=== PATIENT | male | born 1940 | race Caucasian/White ===

== ENCOUNTER → 2016-11-07 | Outpatient (CLI) | payer MEDICARE, BC ==
[~2016-11-07] MED LIST: ASPIRIN E.C. 8181 MG PO; BYSTOLIC10 MG PO; CATAPRES-TTS 10.1 M1 TD; CEPHALEXIN500 M1 PO; COVERA-HS180 MG PO; COZAAR 50MG50 MG/TAB PO; CRESTOR10 MG PO; FLOMAX 0.40.4 MG/CAP PO; FOSINOPRIL SODI10 MG PO; LEVAQUIN 5500 MG/TAB PO; MAXZIDE 50 MG-71 TAB PO; MONOPRIL20 MG PO; NORCO 325 MG-7.1 TAB PO; SENOKOTXTRA17.2 MG PO; TIROSINT50 MCG PO; TRIAMTERENE W/H1 TA1 PO; XARELTO15 MG PO; XARELTO20 MG PO; ZANTAC 150MG T150 MG PO
[2016-11-07 09:55] LABS: HEMATOCRIT 45.8 % (42.0-52.0); HEMOGLOBIN 15.4 g/dl (13.5-18.0); MEAN CELL VOLUME 93 fl (80.0-100.0); MEAN CORPUSCULAR HEMOGLOBIN 31 pg (27.0-31.0); MEAN CORPUSCULAR HGB CONC 34 g/dl (33.0-37.0); MEAN PLATELET VOLUME 10.7 fl (7.4-10.4); PLATELET COUNT 181 K/mm3 (130-400); RED BLOOD COUNT 4.92 M/mm3 (4.20-5.60)
[2016-11-07 10:15] LABS: ADJUSTED CALCIUM 9.4 mg/dL (8.4-10.2); ALBUMIN 3.8 gm/dL (3.5-5.0); CALCIUM 9.2 mg/dL (8.4-10.2); CREATININE, serum 1.74 mg/dL (0.66-1.25); POTASSIUM 3.5 mmol/L (3.4-5.0); TOTAL PROTEIN 6.9 gm/dL (6.4-8.2)
== END ==
LOC: COL.LAB 08:47
PROVIDERS: Internal Medicine
DX: Z01.89 Encounter for other specified special examinations (principal)

== ENCOUNTER 2017-02-05 17:07 | Inpatient (IN) | payer MEDICARE, BC ==
[~2017-02-05] VITALS: Ht 182.9 cm; Wt 89.2 kg
[2017-02-05] VITALS (179 sets, daily range): BP systolic 160; BP diastolic 95; PULSE 65; TEMP 98.1; O2SAT 86–98
[~2017-02-05 17:07] MED LIST changes: -ASPIRIN E.C. 8181 MG PO; -BYSTOLIC10 MG PO; -CATAPRES-TTS 10.1 M1 TD; -COZAAR 50MG50 MG/TAB PO; -FLOMAX 0.40.4 MG/CAP PO; -XARELTO20 MG PO; -ZANTAC 150MG T150 MG PO
[2017-02-05 17:31] LABS: BASO # 0.1 (0.0-0.2); BASO % 0.5 % (0.0-2.0); EOS # 0.1 (0.0-0.7); EOS % 0.7 % (0-4.0); GRAN # 8.2 (1.4-6.5); GRAN % 66.9 % (42.2-75.2); HEMATOCRIT 46.2 % (42.0-52.0); HEMOGLOBIN 15.8 g/dl (13.5-18.0); LYMPH # 2.8 (1.2-3.4); LYMPH % 22.7 % (20.0-51.0); MEAN CELL VOLUME 92 fl (80.0-100.0); MEAN CORPUSCULAR HEMOGLOBIN 31 pg (27.0-31.0); MEAN CORPUSCULAR HGB CONC 34 g/dl (33.0-37.0); MONO # 1.1 (0.1-0.6); PLATELET COUNT 170 K/mm3 (130-400); RED BLOOD COUNT 5.03 M/mm3 (4.20-5.60); REDCELL DISTRIBUTION WIDTH-CV 12.9 % (11.5-14.5); WHITE BLOOD COUNT 12.3 K/mm3 (4.8-10.8)
[2017-02-05 17:36] LABS: INR 1.1 (0.8-3.0); PROTHROMBIN TIME 12.1 SECONDS (9.7-12.8)
[2017-02-05 17:39] LABS: PARTIAL THROMBOPLASTIN TIME 31.6 SECONDS (26.0-37.0)
[2017-02-05] MEDS ORDERED: BYSTOLIC10 MG PO (17:40)
[2017-02-05 17:51] LABS: ADJUSTED CALCIUM 9.3 mg/dL (8.4-10.2); BILIRUBIN,TOTAL 1.2 mg/dL (0.0-1.0); CALCIUM 9.3 mg/dL (8.4-10.2); CREATININE, serum 1.77 mg/dL (0.66-1.25); POTASSIUM 3.4 mmol/L (3.4-5.0); TOTAL PROTEIN 7.5 gm/dL (6.4-8.2)
[2017-02-05] MEDS ORDERED: CATAPRES-TTS 10.1 M1 TD (18:22)
[2017-02-05] MEDS ORDERED: FLOMAX 0.40.4 MG/CAP PO (18:27)
[2017-02-05] MEDS ORDERED: ZANTAC 150MG T150 MG PO (18:27)
[2017-02-05 19:06] LABS: TROPONIN-I 0.054 ng/mL (0.000-0.034)
[2017-02-06] VITALS (462 sets, daily range): BP systolic 121–173; BP diastolic 73–92; PULSE 52–62; TEMP 97.1–98.5; O2SAT 75–98
[2017-02-06 03:38] LABS: PH 6 (5-8); SQUAMOUS EPITHELIAL None Seen /hpf; URINE APPEARANCE Clear; URINE BACTERIA None Seen /hpf; URINE BILIRUBIN Negative (NEGATIVE); URINE BLOOD Negative (NEGATIVE); URINE COLOR Yellow; URINE GLUCOSE Negative (NEGATIVE); URINE KETONE Negative (NEGATIVE); URINE RBC 0-2 /hpf; URINE UROBILINOGEN Negative (NEGATIVE); URINE WBC 0-2 /hpf
[2017-02-06 05:56] LABS: BASO # 0.1 (0.0-0.2); BASO % 0.5 % (0.0-2.0); EOS # 0.1 (0.0-0.7); EOS % 1.2 % (0-4.0); GRAN # 7.8 (1.4-6.5); HEMATOCRIT 40.1 % (42.0-52.0); LYMPH # 2.3 (1.2-3.4); LYMPH % 20.3 % (20.0-51.0); MEAN CELL VOLUME 93 fl (80.0-100.0); MEAN CORPUSCULAR HEMOGLOBIN 31 pg (27.0-31.0); MEAN CORPUSCULAR HGB CONC 33 g/dl (33.0-37.0); MONO # 1.1 (0.1-0.6); MONO % 9.7 % (1.7-9.3); PLATELET COUNT 139 K/mm3 (130-400); RED BLOOD COUNT 4.31 M/mm3 (4.20-5.60); WHITE BLOOD COUNT 11.4 K/mm3 (4.8-10.8)
[2017-02-06 06:06] LABS: CREATININE, serum 1.59 mg/dL (0.66-1.25); HEMOGLOBIN 13.2 g/dl (13.5-18.0); POTASSIUM 3.6 mmol/L (3.4-5.0)
[2017-02-07] VITALS: BP 150/75; PULSE 63; TEMP 98
[2017-02-07 02:40] VITALS: BP 145/72; PULSE 57; TEMP 98.4
[2017-02-07 07:58] VITALS: BP 120/74; PULSE 57; TEMP 97.7
[2017-02-07 11:27] VITALS: BP 125/68; PULSE 66; TEMP 97.8
[2017-02-07 16:21] VITALS: BP 154/78; PULSE 64; TEMP 98
[2017-02-07 23:39] VITALS: BP 162/80; PULSE 56; TEMP 99
[2017-02-08 02:43] VITALS: BP 142/75; PULSE 54; TEMP 98.9
[2017-02-08 07:19] LABS: BASO % 0.4 % (0.0-2.0); EOS # 0.1 (0.0-0.7); EOS % 1.3 % (0-4.0); GRAN # 7.1 (1.4-6.5); GRAN % 69.9 % (42.2-75.2); HEMATOCRIT 39.5 % (42.0-52.0); HEMOGLOBIN 13.2 g/dl (13.5-18.0); LYMPH # 1.9 (1.2-3.4); LYMPH % 18.6 % (20.0-51.0); MEAN CELL VOLUME 92 fl (80.0-100.0); MEAN CORPUSCULAR HEMOGLOBIN 31 pg (27.0-31.0); MEAN CORPUSCULAR HGB CONC 33 g/dl (33.0-37.0); MEAN PLATELET VOLUME 11.2 fl (7.4-10.4); MONO % 9.4 % (1.7-9.3); PLATELET COUNT 187 K/mm3 (130-400); REDCELL DISTRIBUTION WIDTH-CV 12.6 % (11.5-14.5); WHITE BLOOD COUNT 10.2 K/mm3 (4.8-10.8)
[2017-02-08 07:33] LABS: CALCIUM 8.2 mg/dL (8.4-10.2); CREATININE, serum 1.56 mg/dL (0.66-1.25); POTASSIUM 3.5 mmol/L (3.4-5.0)
[2017-02-08 07:55] VITALS: BP 141/77; PULSE 57; TEMP 98.4
[2017-02-08 11:58] VITALS: BP 142/79; PULSE 67; TEMP 98.7
[2017-02-08 16:02] VITALS: BP 148/74; PULSE 48; TEMP 97.5
[2017-02-08 19:54] VITALS: BP 165/81; PULSE 50; TEMP 98.3
[2017-02-08 23:16] VITALS: BP 139/71; PULSE 50; TEMP 98.2
[2017-02-09 03:35] VITALS: BP 140/69; PULSE 50; TEMP 98.7
[2017-02-09 07:39] VITALS: BP 131/77; PULSE 49; TEMP 97.7
[2017-02-09 11:09] VITALS: BP 150/56; PULSE 78; TEMP 98.6
[2017-02-09 13:46] VITALS: BP 136/72; PULSE 46; TEMP 98.3
[2017-02-09 15:55] VITALS: BP 138/69; PULSE 60; TEMP 98.5
[2017-02-09 19:45] VITALS: BP 143/76; PULSE 49; TEMP 98.4
[2017-02-10] VITALS (7 sets, daily range): BP systolic 129–167; BP diastolic 47–82; PULSE 47–55; TEMP 97.6–98.4
[2017-02-10 07:21] LABS: CALCIUM 8.3 mg/dL (8.4-10.2); CREATININE, serum 1.46 mg/dL (0.66-1.25); POTASSIUM 3.5 mmol/L (3.4-5.0)
[2017-02-11] VITALS (9 sets, daily range): BP systolic 118–178; BP diastolic 68–85; PULSE 49–76; TEMP 97.3–98.6
[2017-02-11 09:08] LABS: HEPARIN INDUCED ANTIBODY Negative (Negative); HEPARIN INDUCED OD 0.196 (())
[2017-02-11] MEDS ORDERED: ASPIRIN E.C. 8181 MG PO (10:02)
[2017-02-11] MEDS ORDERED: XARELTO20 MG PO (10:02)
[2017-02-11] MEDS ORDERED: XARELTO15 MG PO (10:02)
[2017-02-11] MEDS ORDERED: COZAAR 50MG50 MG/TAB PO (10:02)
[2017-02-11 10:26] LABS: FACTOR V LEIDEN MUTATION B Negative (Negative)
[2017-02-11 10:40] LABS: CALCIUM 9.4 mg/dL (8.4-10.2); CREATININE, serum 1.47 mg/dL (0.66-1.25); POTASSIUM 3.9 mmol/L (3.4-5.0)
[2017-02-11 12:00] LABS: PROTEIN C ACTIVITY 90 % (70-150)
[2017-02-11 12:06] LABS: PROTEIN S ACTIVITY 137 % (65-149)
[2017-02-11 12:35] LABS: FACTOR II ACTIVITY 112 % (72-140)
[2017-02-12 15:17] LABS: VON WILLEBRAND FACTOR ANTIGEN 312 % (55 - 200)
[2017-02-13 10:19] LABS: LUPUS ANTICOAGULANT INR 1.2 (()); LUPUS ANTICOAGULANT PT 13.4 sec (()); LUPUS ANTICOAGULANT PTT 41 sec (26 - 36)
[2017-02-13 15:01] LABS: .ANTICARDIOLIPIN IGG <9.4 GPL (()); .ANTICARDIOLIPIN IGM <9.4 MPL (())
== END 2017-02-11 17:30 | disposition home or self-care (01) | DRG 175 ==
LOC: COL.ER 17:07 → ICU 18:02 → MEDICAL 02-06 15:24
PROVIDERS: Emergency Medicine; Internal Medicine; Nurse Practitioner Family; Physician Assistant
DX: I26.99 Other pulmonary embolism without acute cor pulmonale (principal); I21.4 Non-ST elevation (NSTEMI) myocardial infarction; I82.411 Acute embolism and thrombosis of right femoral vein; I10 Essential (primary) hypertension; Z85.528 Personal history of other malignant neoplasm of kidney; Z86.718 Personal history of other venous thrombosis and embolism; I27.2 Other secondary pulmonary hypertension
CPT/HCPCS: 99232-AI; 99239; A9502; J1650; J2785; J7030; Q9967

== ENCOUNTER → 2017-02-05 | Outpatient (CLI) | payer MEDICARE, BC | LOC: COL.LAB 11:22 | DX: R06.09 Other forms of dyspnea (principal) ==

== ENCOUNTER → 2017-02-05 | Outpatient (CLI) | payer MEDICARE, BC | LOC: COL.RAD 16:09 → COL.LAB 16:09 | DX: I26.99 Other pulmonary embolism without acute cor pulmonale (principal); R79.1 Abnormal coagulation profile; R91.1 Solitary pulmonary nodule; R06.09 Other forms of dyspnea; Z86.718 Personal history of other venous thrombosis and embolism | CPT/HCPCS: Q9967 ==

== ENCOUNTER → 2017-05-09 | Outpatient (CLI) | payer MEDICARE, BC ==
[~2017-05-09] MED LIST changes: +ASPIRIN E.C. 8181 MG PO; +BYSTOLIC10 MG PO; +CATAPRES-TTS 10.1 M1 TD; +COZAAR 50MG50 MG/TAB PO; +FLOMAX 0.40.4 MG/CAP PO; +XARELTO20 MG PO; +ZANTAC 150MG T150 MG PO
[2017-05-09 10:28] LABS: BASO # 0.1 (0.0-0.2); BASO % 0.7 % (0.0-2.0); EOS # 0.4 (0.0-0.7); EOS % 4.5 % (0-4.0); GRAN % 63.1 % (42.2-75.2); HEMATOCRIT 44.7 % (42.0-52.0); HEMOGLOBIN 14.8 g/dl (13.5-18.0); LYMPH # 2.2 (1.2-3.4); LYMPH % 23.2 % (20.0-51.0); MEAN CELL VOLUME 92 fl (80.0-100.0); MEAN CORPUSCULAR HEMOGLOBIN 31 pg (27.0-31.0); MEAN CORPUSCULAR HGB CONC 33 g/dl (33.0-37.0); MEAN PLATELET VOLUME 11.1 fl (7.4-10.4); MONO # 0.8 (0.1-0.6); MONO % 8.2 % (1.7-9.3); PLATELET COUNT 234 K/mm3 (130-400); RED BLOOD COUNT 4.84 M/mm3 (4.20-5.60); REDCELL DISTRIBUTION WIDTH-CV 13.8 % (11.5-14.5); WHITE BLOOD COUNT 9.5 K/mm3 (4.8-10.8)
[2017-05-09 10:43] LABS: ADJUSTED CALCIUM 9.4 mg/dL (8.4-10.2); ALBUMIN 3.9 gm/dL (3.5-5.0); BILIRUBIN,TOTAL 1.2 mg/dL (0.0-1.0); CALCIUM 9.3 mg/dL (8.4-10.2); CREATININE, serum 1.57 mg/dL (0.66-1.25); POTASSIUM 3.9 mmol/L (3.4-5.0)
== END ==
LOC: COL.LAB 08:48
DX: C64.2 Malignant neoplasm of left kidney, except renal pelvis (principal)

== ENCOUNTER → 2017-05-12 | Outpatient (CLI) | payer MEDICARE, BC | LOC: COL.RAD 09:42 | DX: C64.2 Malignant neoplasm of left kidney, except renal pelvis (principal) | CPT/HCPCS: Q9967 ==

== ENCOUNTER → 2017-11-07 | Outpatient (CLI) | payer MEDICARE, BC ==
[2017-11-07 11:31] LABS: BASO # 0.1 (0.0-0.2); BASO % 0.9 % (0.0-2.0); EOS # 0.3 (0.0-0.7); EOS % 2.8 % (0-4.0); GRAN # 6.1 (1.4-6.5); GRAN % 67.1 % (42.2-75.2); HEMATOCRIT 48.8 % (42.0-52.0); HEMOGLOBIN 16.2 g/dl (13.5-18.0); LYMPH # 1.7 (1.2-3.4); LYMPH % 18.7 % (20.0-51.0); MEAN CELL VOLUME 92 fl (80.0-100.0); MEAN CORPUSCULAR HEMOGLOBIN 31 pg (27.0-31.0); MEAN CORPUSCULAR HGB CONC 33 g/dl (33.0-37.0); MEAN PLATELET VOLUME 11.1 fl (7.4-10.4); MONO # 0.9 (0.1-0.6); MONO % 10.4 % (1.7-9.3); PLATELET COUNT 201 K/mm3 (130-400); RED BLOOD COUNT 5.28 M/mm3 (4.20-5.60); REDCELL DISTRIBUTION WIDTH-CV 13.5 % (11.5-14.5)
[2017-11-07 11:36] LABS: ALBUMIN 3.9 gm/dL (3.5-5.0); BILIRUBIN,TOTAL 0.9 mg/dL (0.0-1.0); CALCIUM 9.2 mg/dL (8.4-10.2); CREATININE, serum 1.5 mg/dL (0.66-1.25); POTASSIUM 3.9 mmol/L (3.4-5.0); TOTAL PROTEIN 7.2 gm/dL (6.4-8.2)
== END ==
LOC: COL.LAB 08:57
PROVIDERS: Internal Medicine
DX: C64.9 Malignant neoplasm of unspecified kidney, except renal pelvis (principal)

== ENCOUNTER → 2018-02-09 | Outpatient (CLI) | payer MEDICARE, BC ==
[2018-02-09 09:30] LABS: HEMATOCRIT 46.2 % (42.0-52.0); HEMOGLOBIN 15.8 g/dl (13.5-18.0); MEAN CELL VOLUME 93 fl (80.0-100.0); MEAN CORPUSCULAR HEMOGLOBIN 32 pg (27.0-31.0); MEAN CORPUSCULAR HGB CONC 34 g/dl (33.0-37.0); MEAN PLATELET VOLUME 10.5 fl (7.4-10.4); PLATELET COUNT 220 K/mm3 (130-400); RED BLOOD COUNT 4.97 M/mm3 (4.20-5.60)
[2018-02-09 09:43] LABS: ALBUMIN 3.6 gm/dL (3.5-5.0); BILIRUBIN,TOTAL 0.9 mg/dL (0.0-1.0); CALCIUM 9.2 mg/dL (8.4-10.2); CREATININE, serum 1.55 mg/dL (0.66-1.25); POTASSIUM 4.1 mmol/L (3.4-5.0); TOTAL PROTEIN 7.2 gm/dL (6.4-8.2)
[2018-02-09 11:24] LABS: BASOPHIL 2 % (0-2); EOSINOPHIL 3 % (0-4); LYMPHOCYTE 27 % (20.0-51.0); NEUTROPHILS 67 % (42.0-75.2); PLATELET ESTIMATE NORMAL (NORMAL)
== END ==
LOC: COL.LAB 08:53
PROVIDERS: Internal Medicine
DX: C64.9 Malignant neoplasm of unspecified kidney, except renal pelvis (principal)

== ENCOUNTER → 2018-02-11 | Outpatient (CLI) | payer MEDICARE, BC | LOC: COL.RAD 09:17 | DX: R91.8 Other nonspecific abnormal finding of lung field (principal); Z85.528 Personal history of other malignant neoplasm of kidney ==

== ENCOUNTER → 2018-08-19 | Outpatient (CLI) | payer MEDICARE, BC ==
[2018-08-19 09:49] LABS: HEMATOCRIT 48.6 % (42.0-52.0); HEMOGLOBIN 15.9 g/dl (13.5-18.0); MEAN CELL VOLUME 93 fl (80.0-100.0); MEAN CORPUSCULAR HEMOGLOBIN 30 pg (27.0-31.0); MEAN CORPUSCULAR HGB CONC 33 g/dl (33.0-37.0); MEAN PLATELET VOLUME 9.9 fl (7.4-10.4); PLATELET COUNT 268 K/mm3 (130-400); RED BLOOD COUNT 5.25 M/mm3 (4.20-5.60); REDCELL DISTRIBUTION WIDTH-CV 13.7 % (11.5-14.5)
[2018-08-19 09:57] LABS: ALBUMIN 3.9 gm/dL (3.5-5.0); BILIRUBIN,TOTAL 0.6 mg/dL (0.0-1.0); CALCIUM 9.3 mg/dL (8.4-10.2); CREATININE, serum 1.43 mg/dL (0.66-1.25); POTASSIUM 4.1 mmol/L (3.4-5.0); TOTAL PROTEIN 7.1 gm/dL (6.4-8.2)
[2018-08-19 13:43] LABS: BAND 5 % (0-10); LYMPHOCYTE 28 % (20.0-51.0); NEUTROPHILS 64 % (42.0-75.2)
[2018-08-19 13:49] LABS: PLATELET ESTIMATE NORMAL (NORMAL)
== END ==
LOC: COL.LAB 08:44
PROVIDERS: Internal Medicine
DX: C64.2 Malignant neoplasm of left kidney, except renal pelvis (principal); R91.1 Solitary pulmonary nodule

== ENCOUNTER → 2019-02-15 | Outpatient (CLI) | payer MEDICARE, BC ==
[2019-02-15 09:02] LABS: HEMATOCRIT 47.6 % (42.0-52.0); HEMOGLOBIN 15.8 g/dl (13.5-18.0); MEAN CELL VOLUME 94 fl (80.0-100.0); MEAN CORPUSCULAR HEMOGLOBIN 31 pg (27.0-31.0); MEAN CORPUSCULAR HGB CONC 33 g/dl (33.0-37.0); MEAN PLATELET VOLUME 10.5 fl (7.4-10.4); PLATELET COUNT 213 K/mm3 (130-400); RED BLOOD COUNT 5.09 M/mm3 (4.20-5.60); REDCELL DISTRIBUTION WIDTH-CV 13.2 % (11.5-14.5)
[2019-02-15 09:03] LABS: ALBUMIN 3.7 gm/dL (3.5-5.0); BILIRUBIN,TOTAL 0.9 mg/dL (0.0-1.0); CREATININE, serum 1.51 (0.66-1.25); POTASSIUM 3.8 mmol/L (3.4-5.0); TOTAL PROTEIN 6.9 gm/dL (6.4-8.2)
[2019-02-15 09:53] LABS: EOSINOPHIL 9 % (0-4); LYMPHOCYTE 32 % (20.0-51.0); NEUTROPHILS 52 % (42.0-75.2); PLATELET ESTIMATE NORMAL (NORMAL)
== END ==
LOC: COL.LAB 08:25
PROVIDERS: Internal Medicine
DX: C64.2 Malignant neoplasm of left kidney, except renal pelvis (principal)

== ENCOUNTER → 2020-02-16 | Outpatient (CLI) | payer MEDICARE, BC ==
[2020-02-16 16:21] LABS: HEMATOCRIT 39.1 % (42.0-52.0); HEMOGLOBIN 12.8 g/dl (13.5-18.0); MEAN CELL VOLUME 96 fl (80.0-100.0); MEAN CORPUSCULAR HEMOGLOBIN 31 pg (27.0-31.0); MEAN CORPUSCULAR HGB CONC 33 g/dl (33.0-37.0); MEAN PLATELET VOLUME 10.6 fl (7.4-10.4); PLATELET COUNT 207 K/mm3 (130-400); RED BLOOD COUNT 4.07 M/mm3 (4.20-5.60); REDCELL DISTRIBUTION WIDTH-CV 13.4 % (11.5-14.5)
[2020-02-16 16:30] LABS: ALBUMIN 4.1 gm/dL (3.5-5.0); BILIRUBIN,TOTAL 0.9 mg/dL (0.0-1.0); CALCIUM 9.4 mg/dL (8.4-10.2); CREATININE, serum 2.3 (0.66-1.25); POTASSIUM 3.7 mmol/L (3.4-5.0); TOTAL PROTEIN 7.4 gm/dL (6.4-8.2)
[2020-02-16 18:38] LABS: EOSINOPHIL 2 % (0-4); LYMPHOCYTE 29 % (20.0-51.0); NEUTROPHILS 58 % (42.0-75.2); PLATELET ESTIMATE NORMAL (NORMAL)
== END ==
LOC: COL.LAB 15:56
PROVIDERS: Internal Medicine
DX: C64.2 Malignant neoplasm of left kidney, except renal pelvis (principal)

== ENCOUNTER → 2020-08-16 | Outpatient (CLI) | payer MEDICARE, BC ==
[2020-08-16 16:27] LABS: HEMATOCRIT 44.5 % (42.0-52.0); HEMOGLOBIN 14.8 g/dl (13.5-18.0); MEAN CELL VOLUME 93 fl (80.0-100.0); MEAN CORPUSCULAR HEMOGLOBIN 31 pg (27.0-31.0); MEAN CORPUSCULAR HGB CONC 33 g/dl (33.0-37.0); MEAN PLATELET VOLUME 9.9 fl (7.4-10.4); PLATELET COUNT 234 K/mm3 (130-400); REDCELL DISTRIBUTION WIDTH-CV 13.3 % (11.5-14.5)
[2020-08-16 18:31] LABS: BAND 3 % (0-10); LYMPHOCYTE 27 % (20.0-51.0); NEUTROPHILS 63 % (42.0-75.2); PLATELET ESTIMATE NORMAL (NORMAL)
== END ==
LOC: COL.LAB 15:42
PROVIDERS: Internal Medicine
DX: C61 Malignant neoplasm of prostate (principal); C64.2 Malignant neoplasm of left kidney, except renal pelvis

== ENCOUNTER → 2021-02-14 | Outpatient (CLI) | payer MEDICARE, BC ==
[2021-02-14 16:50] LABS: HEMATOCRIT 45.5 % (42.0-52.0); HEMOGLOBIN 15.2 g/dl (13.5-18.0); MEAN CELL VOLUME 93 fl (80.0-100.0); MEAN CORPUSCULAR HEMOGLOBIN 31 pg (27.0-31.0); MEAN CORPUSCULAR HGB CONC 33 g/dl (33.0-37.0); MEAN PLATELET VOLUME 10.7 fl (7.4-10.4); PLATELET COUNT 229 K/mm3 (130-400); RED BLOOD COUNT 4.87 M/mm3 (4.20-5.60); REDCELL DISTRIBUTION WIDTH-CV 13.5 % (11.5-14.5)
[2021-02-14 16:56] LABS: ALBUMIN 3.9 gm/dL (3.5-5.0); BILIRUBIN,TOTAL 0.9 mg/dL (0.0-1.0); CALCIUM 9.3 mg/dL (8.4-10.2); CREATININE, serum 1.69 (0.66-1.25)
[2021-02-14 17:29] LABS: BAND 4 % (0-10); BASOPHIL 1 % (0-2); EOSINOPHIL 3 % (0-4); LYMPHOCYTE 38 % (20.0-51.0); NEUTROPHILS 50 % (42.0-75.2); PLATELET ESTIMATE NORMAL (NORMAL)
== END ==
LOC: COL.LAB 16:08
PROVIDERS: Internal Medicine
DX: C61 Malignant neoplasm of prostate (principal)

== ENCOUNTER 2023-10-03 17:33 | Observation (INO) | payer MEDICARE, BC ==
[~2023-10-03] VITALS: Ht 182.9 cm; Wt 99.2 kg
[~2023-10-03 17:33] MED LIST changes: +COUMADIN 5MG5 MG/TAB PO; +DOXYCYCLINE 10100 MG PO
[2023-10-03] MEDS ORDERED: Erythromycin 0.5% Ophth Oint 3.5 GM TUBE OP ONE (18:30)
[2023-10-03] MEDS ORDERED: Ketorolac 15 MG/ML VIAL IV ONE (18:30)
[2023-10-03 19:18] LABS: HEMATOCRIT 40.3 % (42.0-52.0); HEMOGLOBIN 13.2 g/dl (13.5-18.0); MEAN CELL VOLUME 96 fl (80.0-100.0); MEAN CORPUSCULAR HEMOGLOBIN 31 pg (27-31); MEAN CORPUSCULAR HGB CONC 33 g/dl (33.0-37.0); MEAN PLATELET VOLUME 10.8 fl (7.4-10.4); PLATELET COUNT 260 K/mm3 (130-400); REDCELL DISTRIBUTION WIDTH-CV 13.2 % (11.5-14.5)
[2023-10-03 19:32] LABS: INR 1.6 (0.8-3.0); PROTHROMBIN TIME 17.5 SECONDS (9.7-12.8)
[2023-10-03 19:34] LABS: PARTIAL THROMBOPLASTIN TIME 33.2 SECONDS (26.0-37.0)
[2023-10-03 19:43] LABS: ALBUMIN 2.8 gm/dL (3.4-4.8); BILIRUBIN,TOTAL 0.8 mg/dL (0.2-1.2); CALCIUM 9.2 mg/dL (8.4-10.2); CREATININE, serum 1.76 mg/dL (0.72-1.25)
[2023-10-03 20:02] LABS: BAND 1 % (0-10); LYMPHOCYTE 9 % (20.0-51.0); NEUTROPHILS 74 % (42.0-75.2)
[2023-10-03 20:03] LABS: PLATELET ESTIMATE NORMAL (NORMAL)
[2023-10-03] MEDS ORDERED: Vancomycin 1.75 GM,Special Dose/Pharmacy Prepared 1.75 GM in NS 500 ML IV ONE (20:45)
[2023-10-03] MEDS ORDERED: Ondansetron 4 MG/2 ML VIAL IV PRN (21:00)
[2023-10-03] MEDS ORDERED: Acetaminophen 325 MG TAB PO PRN (21:00)
[2023-10-03] MEDS ORDERED: ceFAZolin 2 G in Water For Injection,Sterile 20 ML IV SCH (22:00)
--- NOTE | 2023-10-03 22:10 | NUR ---
PATIENT ARRIVED TO MEDICAL FLOOR AT APPROX [id number]. PATIENT IS ALERT AND ORIENTED TALKING TO STAFF.
--- NOTE | 2023-10-03 22:30 | NUR ---
PATIENT RESTING IN BED. ALERT AND ORIENTED. ADMISSION INTAKE AND ASSESSMENT COMPLETE. PATIENT COMPLAINS OF 7/10 PAIN TO LEFT ELBOW. BLE ARE RED AND EDEMATOUS. PATIENT DENIES PAIN OR TENDERNESS TO THE TOUCH. PATIENT ORIENTED TO THE ROOM. PATIENT TELLS NURSE HE IS HUNGRY, SANDWICH BOX OFFERED. ALL NEEDS MET AT THIS TIME. WILL MONITOR
[2023-10-03] MEDS ORDERED: DYAZIDE 25 MG-31 CAP PO (22:35)
[2023-10-03] MEDS ORDERED: ELIQUIS 5MG PO (22:36)
[2023-10-03] MEDS ORDERED: ASPIRIN E.C. 8181 MG PO (22:37)
[2023-10-03] MEDS ORDERED: PEPCID 20MG TAB20 MG PO (22:38)
[2023-10-03 22:42] VITALS: BP 165/79; PULSE 67; TEMP 98
[2023-10-03 22:43] VITALS: BP_SYST 165
[2023-10-03 23:07] LABS: C-REACTIVE PROTEIN 20.93 mg/dL (0.00-0.50); URIC ACID 7.4 mg/dL (3.5-7.2)
[2023-10-03 23:29] VITALS: BP 144/74; PULSE 78; TEMP 98.2
[2023-10-04] VITALS (11 sets, daily range): BP systolic 125–158; BP diastolic 65–79; PULSE 64–69; TEMP 98.1–100.6
--- NOTE | 2023-10-04 01:05 | NUR ---
REVIEWED PHYSICAL EXAM BY VANDANA ARGUELLES LPN. AGREED.
--- NOTE | 2023-10-04 03:48 | NUR ---
PATIENT RESTING. PATIENT HAS HAD UNEVENTFUL NIGHT AFTER ADMISSION. VSS. WILL MONITOR
[2023-10-04 08:58] LABS: HEMOGLOBIN 12.3 g/dl (13.5-18.0); MEAN CORPUSCULAR HEMOGLOBIN 32 pg (27-31); MEAN CORPUSCULAR HGB CONC 35 g/dl (33.0-37.0); MEAN PLATELET VOLUME 9.9 fl (7.4-10.4); PLATELET COUNT 243 K/mm3 (130-400); RED BLOOD COUNT 3.86 M/mm3 (4.20-5.60); REDCELL DISTRIBUTION WIDTH-CV 13.2 % (11.5-14.5)
[2023-10-04 09:00] LABS: HEMATOCRIT 35.1 % (42.0-52.0); MEAN CELL VOLUME 91 fl (80.0-100.0)
[2023-10-04] MEDS ORDERED: Sennosides/Docusate 8.6-50 MG TAB PO SCH (09:00)
[2023-10-04] MEDS ORDERED: Losartan 50 MG TAB PO SCH (09:00)
[2023-10-04] MEDS ORDERED: Apixaban 5 MG TAB PO SCH (09:03)
[2023-10-04 09:15] LABS: CALCIUM 8.7 mg/dL (8.4-10.2); CREATININE, serum 1.73 mg/dL (0.72-1.25); MAGNESIUM 2.1 mg/dL (1.6-2.6); POTASSIUM 3.8 mmol/L (3.5-4.5)
[2023-10-04] MEDS ORDERED: Erythromycin 0.5% Ophth Oint 3.5 GM TUBE OP SCH (13:00)
--- NOTE | 2023-10-04 13:02 | NUR ---
Data: Patient accepted Echocardiography Tech visit when offered during Echocardiography Tech rounds because he thought he was supposed to. Patient stated his elbow feels better than it did in the ER. Patient is waiting for his lunch to arrive. Assessment: Patient is appreciative of the care he is receiving and accepting all cares offered to him at this time. Plan of Care: Patient accepted prayer; Echocardiography Tech prayed for his healing. Patient thanked Echocardiography Tech for the visit.
[2023-10-04] MEDS ORDERED: Atorvastatin 20 MG TAB PO SCH (21:00)
[2023-10-04] MEDS ORDERED: Rosuvastatin 10 MG **** subs to Atorvastatin 20 MG PO SCH (21:00)
[2023-10-05] VITALS: BP_SYST 148
[2023-10-05 00:16] VITALS: BP 148/72; PULSE 68; TEMP 98.8
[2023-10-05 04:34] VITALS: BP 130/68; PULSE 73; TEMP 99.9
[2023-10-05 05:00] VITALS: BP_SYST 130
--- NOTE | 2023-10-05 05:53 | NUR ---
PT GIVEN TYLENOL THIS AM FOR TEMP OF 99.9, NEW ICE PACK PLACED ON LEFT ELBOW, ARM ELEVATED ON PILLOW
[2023-10-05 06:43] LABS: HEMOGLOBIN 11.9 g/dl (13.5-18.0); MEAN CELL VOLUME 91 fl (80.0-100.0); MEAN CORPUSCULAR HEMOGLOBIN 31 pg (27-31); MEAN CORPUSCULAR HGB CONC 35 g/dl (33.0-37.0); PLATELET COUNT 279 K/mm3 (130-400); RED BLOOD COUNT 3.79 M/mm3 (4.20-5.60)
--- NOTE | 2023-10-05 06:43 | NUR ---
PATIENT ASLEEP, RESTING IN BED. CALL LIGHT WTIHIN REACH, FALL PRECAUTIONS IN PLACE.
[2023-10-05 06:53] LABS: HEMATOCRIT 34.5 % (42.0-52.0)
[2023-10-05 06:58] LABS: CALCIUM 8.5 mg/dL (8.4-10.2); CREATININE, serum 1.57 mg/dL (0.72-1.25); POTASSIUM 3.8 mmol/L (3.5-4.5)
[2023-10-05 07:24] VITALS: BP 142/72; PULSE 64; TEMP 98.3
[2023-10-05 07:44] LABS: BAND 1 % (0-10); EOSINOPHIL 1 % (0-4); LYMPHOCYTE 10 % (20.0-51.0); NEUTROPHILS 75 % (42.0-75.2)
[2023-10-05 07:45] LABS: PLATELET ESTIMATE NORMAL (NORMAL)
[2023-10-05 09:06] VITALS: BP_SYST 142
[2023-10-05] MEDS ORDERED: ILOTYCIN5 MG/GM OP (09:14)
[2023-10-05] MEDS ORDERED: AMOXICILLIN 8751 TAB PO (09:15)
[2023-10-05] MEDS ORDERED: COLCRYS0.6 MG PO (09:16)
--- NOTE | 2023-10-05 10:17 | NUR ---
DISCHARGE [id number] AND EDUCATION GIVEN. JEANNE DENEIS ANY NEEDS OR COMPLAINTS AT THIS TIME. ERYTHROMYCIN OPTHALMIC OINTMENT GIVEN TO PATIENT TO TAKE HOME ORDERED. PATIENTS IV REMOVED. PATIENT DRESSED AND SITTING UP IN BED, BED ALARM ON. AWAITING RIDE FOR SPECIAL EDUCATION CURRICULUM SPECIALIST.
--- NOTE | 2023-10-05 10:27 | NUR ---
SW visited with patient to complete intake. Patient is pending discharge home with HH; SW provided him a list of agencies in his area and his first preference was [facility]. Patient informed SW that he recently moved (not updated in system yet) new address is [address] [place] [id number]. Patient informed SW that he lives alone at his residence, and is independent with ADLs and currently does not use any DMEs. Patient confirmed that his PCP is Dr Johansen and pharmacy of choice is [facility]. NOK is friend Jennie Johnson [phone]. SW faxed over HH referral to patients [facility] preference [facility]. Discharge plan: home today with HH ([facility])
--- NOTE | 2023-10-05 10:45 | NUR ---
SW MET WITH PATIENT AND WILL SET HH WITH [facility] PARRY AWARE. PATIENT TAKEN TO ER VIA WHEELCHAIR WHERE HE LEFT IN STABLE CONDITION WITH A FAMILY FRIEND.
[2023-10-07] MEDS ORDERED: cloNIDine 0.1 MG WEEKLY PATCH TD SCH (09:00)
== END 2023-10-05 11:48 | disposition home or self-care (01) ==
LOC: COL.ER 17:33 → MEDICAL 20:45
PROVIDERS: Internal Medicine; Physician Assistant; ADMIT Internal Medicine
DX: I89.0 Lymphedema, not elsewhere classified (principal); L03.116 Cellulitis of left lower limb; L03.115 Cellulitis of right lower limb; E78.5 Hyperlipidemia, unspecified; M10.9 Gout, unspecified; N40.0 Benign prostatic hyperplasia without lower urinary tract symptoms; E03.9 Hypothyroidism, unspecified; I73.9 Peripheral vascular disease, unspecified; M19.022 Primary osteoarthritis, left elbow; Z86.718 Personal history of other venous thrombosis and embolism; Z79.01 Long term (current) use of anticoagulants; Z79.890 Hormone replacement therapy; Z85.528 Personal history of other malignant neoplasm of kidney; Z79.899 Other long term (current) drug therapy; Z91.199 Patient's noncompliance with other medical treatment and regimen due to unspecified reason; Z86.711 Personal history of pulmonary embolism
CPT/HCPCS: G0378; J0690; J1885